=== PATIENT | male | born 1965 | race Caucasian/White ===

== ENCOUNTER 2022-04-23 13:26 | Emergency (ER) | payer OTHER, SELFPAY ==
[2022-04-23 13:32] VITALS: BP 146/84; PULSE 92; RESP 20; TEMP 36.7; O2SAT 97
--- NOTE | 2022-04-23 13:33 | ED.URI ---
HPI - URI/Sore Throat General Chief Complaint: Upper Respiratory Infection Stated Complaint: sinus infection Time Seen by Provider: 04/23/22 13:33 Source: patient and RN notes reviewed History of Present Illness HPI Narrative: Patient is a 56-year-old male who presents to urgent care with complaints of nasal congestion for 1 week and cough for 2 days. Patient denies any history of sinus surgeries but states he has had recurrent sinus infections. Patient denies any fevers, nausea or vomiting. Denies any ill exposures. States that he has been taking Mucinex and NyQuil. No other acute complaints. No acute distress noted. Patient aware of the plan of care. Some parts of this dictation were generated by voice recognition software and may contain typographical and/or grammatical inaccuracies. Related Data Home Medications Medication Instructions Recorded Confirmed carvedilol 3.125 mg tablet mg 04/23/22 cyclobenzaprine 10 mg tablet mg 04/23/22 lisinopril 20 tablet 04/23/22 mg-hydrochlorothiazide 12.5 mg tablet metformin 1,000 mg tablet mg 04/23/22 omeprazole 40 mg capsule,delayed mg 04/23/22 release paroxetine HCl 10 mg tablet mg PO 04/23/22 sildenafil 100 mg tablet mg 04/23/22 Allergies Allergy/AdvReac Type Severity Reaction Status Date / Time Penicillins Allergy Hives Verified 04/23/22 13:33 Review of Systems Review of Systems: CONSTITUTIONAL: Denies fever, chills, or sweats. EYES: Denies visual changes, redness, or discharge. ENT: Reports sinus congestion, nasal congestion, postnasal drainage CARDIOVASCULAR: Denies chest pain, palpitations, or edema. RESPIRATORY: Reports of cough without dyspnea GASTROINTESTINAL: Denies abdominal pain, nausea, vomiting, or diarrhea. GENITOURINARY: Denies dysuria or hematuria. SKIN: Denies rash or itching. MUSCULOSKELETAL: Denies back pain, joint pain, or myalgia. NEUROLOGIC: Denies headache, numbness, or weakness. All other systems reviewed are negative, except as documented in HPI. PMFSH Comments At the time of my signature, I reviewed and agree with the nursing past medical, surgical, social, and family history. There is no relevant family history pertinent to the patient complaint. Exam Narrative: GENERAL: This is a well-nourished, well-developed patient, in no apparent distress. HEAD: normocephalic, atraumatic. EYES: PERRL. Sclera clear/white. Vision is grossly intact. EARS: External ears normal, auditory canals clear and without drainage, TMs normal without perforation. Hearing grossly intact. NOSE: External nose normal with no obvious nasal discharge. Mild bilateral erythema nares with clear rhinorrhea THROAT: Mucous membranes moist, posterior pharynx clear. Moderate postnasal drainage NECK: Neck supple, non-tender without lymphadenopathy, masses or thyromegaly. CARDIOVASCULAR: Regular rate and rhythm RESPIRATORY: Cough noted on deep breathing. Clear to auscultation. Breath sounds equal bilaterally. No wheezes, rales, or rhonchi. SKIN: warm, intact with no suspicious lesions or rash, good texture and turgor. NEURO: awake, alert, and oriented to person, place and time. There were no obvious focal neurologic abnormalities. EXTREMITIES: No clubbing, cyanosis, or edema. Course Course Level of Care: Express Care Visit Vital Signs Vital signs: Vital Signs Temperature 98.1 F 04/23/22 13:32 Pulse Rate 92 04/23/22 13:32 Respiratory Rate 20 04/23/22 13:32 Blood Pressure 146/84 H 04/23/22 13:32 Pulse Oximetry 97 04/23/22 13:32 Oxygen Delivery Room Air 04/23/22 13:32 Temperature 98.1 F 04/23/22 13:32 Pulse Rate 92 04/23/22 13:32 Respiratory Rate 20 04/23/22 13:32 Blood Pressure 146/84 H 04/23/22 13:32 Pulse Oximetry 97 04/23/22 13:32 Oxygen Delivery Room Air 04/23/22 13:32 Reviewed- Patient is informed that they may have pre-hypertension or hypertension based on a blood pressure reading in the department. I recom
== END 2022-04-23 13:49 | disposition home or self-care (01) ==
PROVIDERS: Emergency Provider Nurse Practitioner Family; PCP Family Medicine
DX: J32.9 Chronic sinusitis, unspecified (principal); I10 Essential (primary) hypertension; E11.9 Type 2 diabetes mellitus without complications
CPT/HCPCS: 99213; G0463